=== PATIENT | female | born 1955 | race Caucasian/White ===

== ENCOUNTER 2020-06-10 13:48 | Emergency (ER) | payer BC ==
[~2020-06-10] VITALS: Ht 175.3 cm; Wt 104.5 kg
[2020-06-10 13:56] VITALS: BP 145/81; TEMP 98.6
[2020-06-10 14:21] LABS: BASO % 0.2 % (0.0-2.0); EOS % 0.5 % (0-4.0); GRAN % 79.5 % (42.2-75.2); HEMATOCRIT 36.2 % (37.0-47.0); LYMPH % 11.2 % (20.0-51.0); MEAN CELL VOLUME 87 fl (80.0-100.0); MEAN CORPUSCULAR HEMOGLOBIN 26 pg (27.0-31.0); MEAN CORPUSCULAR HGB CONC 30 g/dl (33.0-37.0); MEAN PLATELET VOLUME 9.3 fl (7.4-10.4); MONO # 0.7 (0.1-0.6); MONO % 8.4 % (1.7-9.3); PLATELET COUNT 346 K/mm3 (130-400); RED BLOOD COUNT 4.17 M/mm3 (4.10-5.30); REDCELL DISTRIBUTION WIDTH-CV 14.8 % (11.5-14.5)
[2020-06-10 14:29] LABS: INR 1.2 (0.8-3.0); PROTHROMBIN TIME 13.7 SECONDS (9.7-12.8)
[2020-06-10 14:34] LABS: CALCIUM 8.9 mg/dL (8.4-10.2); CREATININE, serum 0.7 (0.52-1.25); POTASSIUM 3.8 mmol/L (3.4-5.0)
[2020-06-10 15:50] VITALS: PULSE 89
[2020-09-24] MEDS ORDERED: ELIQUIS 5MG PO (15:21)
[2020-09-24] MEDS ORDERED: ONE-A-DAY ESSE1 EACH PO (15:22)
[2020-09-24] MEDS ORDERED: INDERAL60 MG PO (15:22)
[2020-09-24] MEDS ORDERED: GLUCOSAMINE & C1 TAB PO (15:23)
== END 2020-06-10 15:50 | disposition home or self-care (01) ==
LOC: COL.ER 13:48
PROVIDERS: Physician Assistant
DX: R79.1 Abnormal coagulation profile (principal); M79.605 Pain in left leg; Z88.4 Allergy status to anesthetic agent
CPT/HCPCS: J1650

== ENCOUNTER → 2020-06-11 | Outpatient (CLI) | payer BC ==
[~2020-06-11] MED LIST: ELIQUIS 5MG PO; GLUCOSAMINE & C1 TAB PO; INDERAL60 MG PO; ONE-A-DAY ESSE1 EACH PO
== END ==
LOC: COL.VAS 08:37
DX: M79.605 Pain in left leg (principal); M79.89 Other specified soft tissue disorders

== ENCOUNTER → 2020-06-15 | Outpatient (CLI) | payer BC | LOC: COL.RAD 08:47 | DX: K44.9 Diaphragmatic hernia without obstruction or gangrene (principal); E04.9 Nontoxic goiter, unspecified; I26.99 Other pulmonary embolism without acute cor pulmonale; R79.89 Other specified abnormal findings of blood chemistry; Z96.89 Presence of other specified functional implants | CPT/HCPCS: Q9967 ==

== ENCOUNTER → 2020-09-17 | Outpatient (CLI) | payer BC | LOC: COL.RAD 09:06 | DX: I26.93 Single subsegmental thrombotic pulmonary embolism without acute cor pulmonale (principal); K44.9 Diaphragmatic hernia without obstruction or gangrene; I51.7 Cardiomegaly; E04.9 Nontoxic goiter, unspecified | CPT/HCPCS: Q9967 ==

== ENCOUNTER → 2020-09-26 | Outpatient (CLI) | payer BC ==
[~2020-09-26] VITALS: Ht 172.7 cm; Wt 93.3 kg
[2020-09-26 07:49] VITALS: BP 131/94; PULSE 84
[2020-09-26 08:55] VITALS: BP 124/75; PULSE 73
== END ==
LOC: COL.RAD 07:21
DX: E04.1 Nontoxic single thyroid nodule (principal)
CPT/HCPCS: 32140

== ENCOUNTER → 2020-12-12 | Outpatient (CLI) | payer BC | LOC: COL.RAD 10:13 | DX: E04.2 Nontoxic multinodular goiter (principal) | CPT/HCPCS: Q9967 ==